=== PATIENT | female | born 1990 | race Hispanic/Latino ===

== ENCOUNTER 2019-10-22 11:11 | Emergency (ER) | payer SELFPAY ==
[~2019-10-22] VITALS: Ht 157.5 cm; Wt 70.3 kg
[2019-10-22 11:11] VITALS: BP 118/59
== END 2019-10-22 13:41 | disposition home or self-care (01) ==
LOC: M ED 11:11
DX: J06.9 Acute upper respiratory infection, unspecified (principal); Z87.891 Personal history of nicotine dependence
CPT/HCPCS: 87880; 99284; C9803; U0003

== ENCOUNTER 2020-05-12 16:39 | Emergency (ER) | payer MEDICAID, SELFPAY ==
[~2020-05-12] VITALS: Ht 157.5 cm; Wt 71.3 kg
[2020-05-12 16:39] VITALS: BP 118/56
--- NOTE | 2020-05-12 17:50 | REP ---
INDICATION: left abd pain. COMPARISON: None. TECHNIQUE: Transabdominal and transvaginal scanning are included. FINDINGS: Uterine dimensions are normal measured at 9.0 x 4.9 x 5.6 cm. Endometrial echo is 1.5 cm thick. No intrauterine gestation is seen. No focal uterine mass is seen. No free fluid Right ovary is normal measuring 2.8 x 2.2 x 2.6 cm. Left ovarian dimensions are 2.8 x 2.4 x 3.0 cm. There is a left ovarian anechoic cyst measuring 2.7 x 1.7 x 2.4 cm. This may be a follicle cyst. . IMPRESSION: No evidence of intrauterine gestation, adnexal mass, or cul-de-sac fluid. Nonspecific sonographic findings in the face of early 1st trimester . Clinical and possibly sonographic follow-up suggested. There is a small cystic area in the left ovary. <Electronically signed by Fritz Alvarez > 05/12/20 [id number]
[2020-05-12 20:12] LABS: BASO # 0.1 10^3/uL (0.0-0.2); BASO % 0.7 % (0.0-1.0); EOS # 0.2 10^3/uL (0.0-0.5); EOS % 2.7 % (0.0-3.0); HEMATOCRIT 38.4 % (36.0-47.0); HEMOGLOBIN 12.3 g/dl (12.0-15.5); LYMPH # 2.4 10^3/uL (1.5-5.0); LYMPH % 34.1 % (24.0-44.0); MEAN CORPUSCULAR HEMOGLOBIN 30.1 pg (27.0-33.0); MEAN CORPUSCULAR VOLUME 93.9 fl (80.0-96.0); MONO # 0.3 10^3/uL (0.0-0.8); MONO % 4.6 % (0.0-5.0); NEUTROPHILS # 4.1 10^3/uL (1.5-8.5); NEUTROPHILS % 57.6 % (36.0-66.0); PLATELET COUNT, AUTOMATED 255 10^3/uL (150-450); RED BLOOD COUNT 4.09 10^6/uL (4.00-5.40); WHITE BLOOD COUNT 7.1 10^3/uL (4.0-10.0)
[2020-05-12 20:38] LABS: BLOOD UREA NITROGEN 8 MG/DL (7-18); CALCIUM LEVEL 8.6 MG/DL (8.5-10.1); CARBON DIOXIDE LEVEL 23 MEQ/L (21-32); CHLORIDE LEVEL 109 MEQ/L (98-107); CREATININE FOR GFR 0.69 MG/DL (0.55-1.30); GLOMERULAR FILTRATION RATE > 60.0 (>60); GLUCOSE, FASTING 82 MG/DL (70-100); HCG, SERUM QUANTITATIVE 707 MIU/ML; POTASSIUM SERUM 3.7 MEQ/L (3.5-5.1); SODIUM LEVEL 138 MEQ/L (136-145)
== END 2020-05-12 22:00 | disposition home or self-care (01) ==
LOC: M ED 16:39
DX: O20.0 Threatened abortion (principal); O99.330 Smoking (tobacco) complicating pregnancy, unspecified trimester

== ENCOUNTER → 2020-05-14 | Outpatient (CLI) | payer SELFPAY | LOC: M LAB 16:29 | PROVIDERS: ATTEND Physician Assistant | DX: O20.0 Threatened abortion (principal); Z3A.00 Weeks of gestation of pregnancy not specified ==

== ENCOUNTER → 2020-05-22 | Outpatient (CLI) | payer SELFPAY | LOC: M LABSMTC 10:06 | PROVIDERS: ATTEND Pediatrics | DX: Z20.828 Contact with and (suspected) exposure to other viral communicable diseases (principal) ==

== ENCOUNTER → 2020-05-28 | Outpatient (CLI) | payer MEDICAID ==
--- NOTE | 2020-05-28 14:51 | REP ---
INDICATION: COUNSELING, UNSPECIFIED/ LABS 1ST. COMPARISON: 05/12/2020. TECHNIQUE: Real-time sonographic evaluation of gravid uterus performed. FINDINGS: There is a single living intrauterine gestation with estimated station later 6 weeks 5 days based on a crown-rump length of 8 mm. EDC is 01/16/2021. heart rate is 139 beats per minute. There is no subchorionic hemorrhage. There is a cyst in the left ovary which may represent a corpus luteum 3.6 x 2.3 x 3.8 cm. No torsion is seen in the left ovary with duplex Doppler evaluation. IMPRESSION: Viable intrauterine gestation as above. <Electronically signed by Margarito Hussein > 05/28/20 [id number]
== END ==
LOC: M LAB 10:54
PROVIDERS: ATTEND Obstetrics & Gynecology Obstetrics
DX: O34.81 Maternal care for other abnormalities of pelvic organs, first trimester (principal); N83.202 Unspecified ovarian cyst, left side; Z3A.00 Weeks of gestation of pregnancy not specified

== ENCOUNTER 2020-06-16 08:05 | Emergency (ER) | payer MEDICAID, OTHER ==
[~2020-06-16] VITALS: Ht 157.5 cm; Wt 76.0 kg
[2020-06-16] MEDS ORDERED: PRENTAB9 PO (08:15)
[2020-06-16 09:29] LABS: BASO # 0.1 10^3/uL (0.0-0.2); BASO % 0.7 % (0.0-1.0); EOS # 0.1 10^3/uL (0.0-0.5); EOS % 1.8 % (0.0-3.0); HEMOGLOBIN 12.6 g/dl (12.0-15.5); LYMPH # 2.1 10^3/uL (1.5-5.0); LYMPH % 28.8 % (24.0-44.0); MEAN CORPUSCULAR HEMOGLOBIN 30.1 pg (27.0-33.0); MEAN CORPUSCULAR HGB CONC 33.2 g/dl (32.0-36.5); MEAN CORPUSCULAR VOLUME 90.7 fl (80.0-96.0); MONO # 0.4 10^3/uL (0.0-0.8); MONO % 4.9 % (0.0-5.0); NEUTROPHILS # 4.7 10^3/uL (1.5-8.5); NEUTROPHILS % 63.5 % (36.0-66.0); PLATELET COUNT, AUTOMATED 272 10^3/uL (150-450); RED BLOOD COUNT 4.19 10^6/uL (4.00-5.40); WHITE BLOOD COUNT 7.4 10^3/uL (4.0-10.0)
[2020-06-16 10:27] LABS: BLOOD UREA NITROGEN 7 MG/DL (7-18); CARBON DIOXIDE LEVEL 24 MEQ/L (21-32); CHLORIDE LEVEL 108 MEQ/L (98-107); CREATININE FOR GFR 0.63 MG/DL (0.55-1.30); GLOMERULAR FILTRATION RATE > 60.0 (>60); GLUCOSE, FASTING 89 MG/DL (70-100); HCG, SERUM QUANTITATIVE 64894 MIU/ML; POTASSIUM SERUM 3.9 MEQ/L (3.5-5.1); SODIUM LEVEL 137 MEQ/L (136-145)
--- NOTE | 2020-06-16 10:34 | REP ---
INDICATION: 9 weeks , cramping. COMPARISON: Comparison study 05/28/2020.. TECHNIQUE: Transabdominal scanning. FINDINGS: Scanning through the urine filled bladder demonstrates a single living intrauterine gestation in a free-floating lie. heart rate is recorded at 176 beats per minute. [place]-rump length of the embryonic pole is 27 mm. This corresponds with a gestational age estimate of 9 weeks 3 days. There is a 3.3 cm septated cystic area in the maternal left ovary consistent with corpus luteum. IMPRESSION: Viable single intrauterine gestation at 9 weeks 3 days by today's crown-rump length. Expected gestational age estimate based on prior sonography is 9 weeks 5 days. LINDSEY by prior sonography January 14, 2021. No complication is seen. 3.3 cm cystic area is noted in the maternal left ovary. <Electronically signed by Fritz Alvarez > 06/16/20 [id number]
[2020-06-16] MEDS ORDERED: NS 1,000 ML IV ONE (10:45)
[2020-06-16] MEDS ORDERED: KEFL500C17 PO (12:39)
[2020-06-16 12:45] VITALS: BP 112/69
== END 2020-06-16 12:47 | disposition home or self-care (01) ==
LOC: M ED 08:05
DX: Z32.01 Encounter for pregnancy test, result positive (principal); O26.891 Other specified pregnancy related conditions, first trimester; O34.81 Maternal care for other abnormalities of pelvic organs, first trimester; O23.91 Unspecified genitourinary tract infection in pregnancy, first trimester; Z3A.09 9 weeks gestation of pregnancy; Z87.891 Personal history of nicotine dependence

== ENCOUNTER → 2020-06-22 | Outpatient (CLI) | payer OTHER ==
[~2020-06-22] MED LIST: KEFL500C17 PO; PRENTAB9 PO
[2020-06-22 08:13] LABS: APPEARANCE, URINE CLEAR (CLEAR); BACTERIA, URINE AUTO 1+ (NEGATIVE); BILIRUBIN, URINE AUTO NEGATIVE (NEGATIVE); BLOOD, URINE BLOOD NEGATIVE (NEGATIVE); COLOR, URINE STRAW (YELLOW); GLUCOSE, URINE (UA) AUTO NEGATIVE (NEGATIVE); KETONE, URINE AUTO NEGATIVE (NEGATIVE); LEUKOCYTE ESTERASE, URINE AUTO NEGATIVE (NEGATIVE); NITRITE, URINE AUTO NEGATIVE (NEGATIVE); PROTEIN, URINE AUTO NEGATIVE (NEGATIVE); RBC, URINE AUTO 1 /HPF (0-3); SPECIFIC GRAVITY URINE AUTO 1.005 (1.002-1.035); SQUAMOUS EPITHELIAL CELL UR AU 0 /HPF (0-6); UROBILINOGEN, URINE AUTO 0.2 mg/dL (0.0-2.0); WBC, URINE AUTO 0 /HPF (0-3)
[2020-06-22 09:03] LABS: BASO % 0.5 % (0.0-1.0); EOS # 0.2 10^3/uL (0.0-0.5); EOS % 2.3 % (0.0-3.0); HEMATOCRIT 37.2 % (36.0-47.0); HEMOGLOBIN 12.1 g/dl (12.0-15.5); LYMPH # 1.8 10^3/uL (1.5-5.0); LYMPH % 22.5 % (24.0-44.0); MEAN CORPUSCULAR HGB CONC 32.5 g/dl (32.0-36.5); MEAN CORPUSCULAR VOLUME 92.1 fl (80.0-96.0); MONO # 0.4 10^3/uL (0.0-0.8); MONO % 4.9 % (0.0-5.0); NEUTROPHILS # 5.5 10^3/uL (1.5-8.5); NEUTROPHILS % 69.5 % (36.0-66.0); PLATELET COUNT, AUTOMATED 259 10^3/uL (150-450); RED BLOOD COUNT 4.04 10^6/uL (4.00-5.40)
[2020-06-22 09:20] LABS: ALBUMIN 3.7 GM/DL (3.2-5.2); ALT/SGPT 25 U/L (12-78); BILIRUBIN,TOTAL 0.1 MG/DL (0.2-1.0); BLOOD UREA NITROGEN 10 MG/DL (7-18); CALCIUM LEVEL 8.4 MG/DL (8.5-10.1); CARBON DIOXIDE LEVEL 23 MEQ/L (21-32); CHLORIDE LEVEL 106 MEQ/L (98-107); CREATININE FOR GFR 0.59 MG/DL (0.55-1.30); FREE T3 3.8 PG/ML (2.2-4.0); FREE T4 1.21 NG/DL (0.76-1.46); GLOMERULAR FILTRATION RATE > 60.0 (>60); GLUCOSE, FASTING 84 MG/DL (70-100); POTASSIUM SERUM 3.9 MEQ/L (3.5-5.1); SODIUM LEVEL 138 MEQ/L (136-145); THYROXINE (T4) 13.6 UG/DL (4.5-12.0); TOTAL PROTEIN 6.7 GM/DL (6.4-8.2)
[2020-06-22 09:22] LABS: THYROID PEROXIDASE ANTIBODY < 28.0 U/ML (<60.0)
[2020-06-22 10:03] LABS: HIV 1&2 SCREEN CENTAUR NEGATIVE (NEGATIVE)
== END ==
LOC: M LAB 06:37
DX: Z34.81 Encounter for supervision of other normal pregnancy, first trimester (principal); Z3A.10 10 weeks gestation of pregnancy

== ENCOUNTER → 2020-07-08 | Outpatient (REF) | payer OTHER | LOC: M LAB REF 15:48 | PROVIDERS: ATTEND Obstetrics & Gynecology | DX: Z34.81 Encounter for supervision of other normal pregnancy, first trimester (principal) ==

== ENCOUNTER → 2020-07-15 | Outpatient (CLI) | payer OTHER | LOC: M LAB 19:33 | PROVIDERS: ATTEND Obstetrics & Gynecology Obstetrics | DX: Z34.81 Encounter for supervision of other normal pregnancy, first trimester (principal) ==

== ENCOUNTER → 2020-07-15 | Outpatient (CLI) | payer OTHER | LOC: M LAB 19:27 | PROVIDERS: ATTEND Obstetrics & Gynecology | DX: Z34.81 Encounter for supervision of other normal pregnancy, first trimester (principal); Z3A.00 Weeks of gestation of pregnancy not specified ==

== ENCOUNTER → 2020-07-29 | Outpatient (REF) | LOC: M LABSMTC 12:16 | PROVIDERS: ATTEND Family Medicine | DX: Z20.822 Contact with and (suspected) exposure to COVID-19 (principal) ==

== ENCOUNTER 2020-09-01 00:52 | Outpatient (CLI) | payer OTHER ==
[~2020-09-01] VITALS: Ht 157.5 cm; Wt 78.3 kg
[2020-09-01] MEDS ORDERED: LR 1,000 ML IV ONE (01:30)
[2020-09-01] MEDS ORDERED: LR 1,000 ML IV SCH (01:30)
[2020-09-01 01:34] VITALS: BP 115/60
[2020-09-01] MEDS ORDERED: PROMETHAZINE INJ 25 MG/ML VIAL (J2550) IV ONE (01:35)
[2020-09-01 04:33] VITALS: BP 93/47
--- NOTE | 2020-09-01 04:50 | IPNPDOC ---
Text Note Date of Service The patient was seen on 09/01/20. NOTE L&D Triage Note: S: 29yo at 20w5d presents with c/o n/v that started yesterday morning 0900. Reports sick contact at work at [employer] [facility]. Denies f/c, vaginal bleeding. Reports movement O: vss, AF +doptones Gen: NAD Abd: gravid, nttp -Patient provided with 2L LR with 12.5mg Phenergan. A/P: 29yo at 20w5d with N/V, improved - Will challenge with PO hydration. When able to tolerate PO, plan to discharge home -Midtrimester precautions -f/u at next OB appt Carrie Casper MD VS,Toan, I+O VSToan, I+O Vital Signs Date Time Temp Pulse Resp B/P (MAP) Pulse Ox O2 Delivery O2 Flow Rate FiO2 09/01/20 01:34 98.1 80 16 115/60 (78) CARRIE CASPER MD. Sep 01, 2020 04:50
[2020-09-01] MEDS ORDERED: ONDA4TAB6 PO (04:51)
[2020-09-01 09:37] VITALS: BP 106/59
== END 2020-09-01 10:05 | disposition home or self-care (01) ==
LOC: M LDO 00:52
PROVIDERS: ATTEND Obstetrics & Gynecology
DX: O21.8 Other vomiting complicating pregnancy (principal); Z3A.20 20 weeks gestation of pregnancy

== ENCOUNTER → 2020-09-23 | Outpatient (CLI) | payer OTHER ==
[~2020-09-23] MED LIST changes: +ONDA4TAB6 PO
--- NOTE | 2020-09-24 07:35 | REP ---
INDICATION: ANATOMY COMPARISON: 06/16/2020 TECHNIQUE: Transabdominal obstetrical ultrasound with color Doppler evaluation. FINDINGS: Examination demonstrates a single live intrauterine in footling breech presentation. motion is identified by technologist. Placenta is noted anterior and grade 0 without evidence for placenta previa or abruption. Amniotic fluid volume is normal. Cervix measures 5.0 cm in length and appears closed.. Gestational age by LMP and 1st U/S 23 weeks 6 days with LINDSEY 01/14/2021. Gestational age by current measurements 24 weeks 3 days with LINDSEY 01/10/2021. FHR equals 160 beats per minute. BPD: 5.9 cm at 24 weeks 2 days HC: 22.2 cm at 24 weeks 2 days AC: 18.8 cm at 23 weeks 4 days FL: 4.2 cm at 23 weeks 4 days HL: 4.4 cm at 26 weeks 2 days HC/AC: 1.18 Estimated weight 617 grams (31stpercentile). Anatomical assessment demonstrates normal structures including cranium, choroid plexus, cavum, cerebellum/posterior fossa, facial features, lungs, four-chamber heart/ventricular outflow tracts, diaphragm, stomach, cord insertion/three-vessel cord, kidneys/bladder, spine, and extremities. IMPRESSION: Single live intrauterine in breech presentation. Anatomical assessment is complete and normal. Estimated weight normal. <Electronically signed by Delfino Gerardo > 09/24/20 [id number]
== END ==
LOC: M RAD 13:48
PROVIDERS: ATTEND Obstetrics & Gynecology Obstetrics
DX: O32.8XX0 Maternal care for other malpresentation of fetus, not applicable or unspecified (principal); Z36.89 Encounter for other specified antenatal screening; Z3A.23 23 weeks gestation of pregnancy

== ENCOUNTER 2020-10-02 12:28 | Outpatient (CLI) | payer OTHER ==
[~2020-10-02] VITALS: Ht 157.5 cm; Wt 85.6 kg
[2020-10-02 13:03] VITALS: BP 112/58
[2020-10-02] MEDS ORDERED: CYCLOBENZAPRINE 10MG TABLET PO ONE (13:30)
--- NOTE | 2020-10-02 13:34 | IPNPDOC ---
Obstetrical Progress Note Date of Service Oct 02, 2020 Subjective 29 yo at 25 1/7 weeks presents with 1 day of lower pelvic cramping, and low back pain. Rare upper abdominal tightening. No bleeding. Good movement. pt of Dr. Chakraborty at [facility]. Assessment Variability: Moderate Accelerations: Positive Decelerations: None Heart Rate Tracing: Category I Tocometer Contractions: No Sterile Vaginal Examination Dilation: None Cervical Consistency: Firm Cervical Position: Posterior Assessment and Plan Status: Reassuring Additional Comments Bedside ultrasound: Breech, normal ROBERT, nl anterior placenta, good movement 29 yo at 25 1/7 weeks with back pain, no labor pelvic rest oral fluids try Flexeril for back pain fu Dr. Chakraborty Recommend taking night off from work today BERENICE TOPETE MD Oct 02, 2020 13:34
[2020-10-02] MEDS ORDERED: ACET325C5 PO (13:42)
== END 2020-10-02 15:00 | disposition home or self-care (01) ==
LOC: M LDO 12:28
PROVIDERS: ATTEND Specialist
DX: O26.892 Other specified pregnancy related conditions, second trimester (principal); M54.5 Low back pain; Z3A.25 25 weeks gestation of pregnancy

== ENCOUNTER 2020-10-03 19:32 | Outpatient (CLI) | payer OTHER ==
[~2020-10-03] VITALS: Ht 157.5 cm; Wt 83.8 kg
[~2020-10-03 19:32] MED LIST changes: +ACET325C5 PO
[2020-10-03 19:51] VITALS: BP 110/68
[2020-10-03 21:47] VITALS: BP 103/57
--- NOTE | 2020-10-03 21:47 | IPNPDOC ---
Text Note Date of Service The patient was seen on 10/03/20. NOTE S: 24 yo at 25 2/7 weeks presents with pain near her rib cage in front, and some lower back pain. Good movement. Pt left work to come to triage. She is a patient of Dr. Chakraborty. S: Gen: NAD Abd: nt, gravid, soft SVE: cx L/C/P firm no CVA tenderness FHT: Cat. I toco: none ext:NT urinalysis: normal A/P 24 yo at 25 2/7 weeks with musculoskeletal pain discharge home rest tonight Tylenol for discomfort fu Dr. Chakraborty VS,Fishbone, I+O VS, Fishbone, I+O Vital Signs Date Time Temp Pulse Resp B/P (MAP) Pulse Ox O2 Delivery O2 Flow Rate FiO2 10/03/20 19:51 98.3 81 18 110/68 (82) 98 Room Air BERENICE TOPETE MD Oct 03, 2020 21:47
== END 2020-10-03 22:07 | disposition home or self-care (01) ==
LOC: M LDO 19:32
PROVIDERS: ATTEND Specialist
DX: O26.892 Other specified pregnancy related conditions, second trimester (principal); M79.18 Myalgia, other site; Z3A.25 25 weeks gestation of pregnancy

== ENCOUNTER → 2020-10-26 | Outpatient (CLI) | payer OTHER ==
[2020-10-26 12:33] LABS: BASO % 0.5 % (0.0-1.0); EOS # 0.1 10^3/uL (0.0-0.5); EOS % 0.6 % (0.0-3.0); HEMATOCRIT 35.2 % (36.0-47.0); HEMOGLOBIN 11.5 g/dl (12.0-15.5); LYMPH # 1.3 10^3/uL (1.5-5.0); LYMPH % 15.4 % (24.0-44.0); MEAN CORPUSCULAR HEMOGLOBIN 31.1 pg (27.0-33.0); MEAN CORPUSCULAR HGB CONC 32.7 g/dl (32.0-36.5); MEAN CORPUSCULAR VOLUME 95.1 fl (80.0-96.0); MONO # 0.3 10^3/uL (0.0-0.8); MONO % 3.9 % (2.0-8.0); NEUTROPHILS # 6.7 10^3/uL (1.5-8.5); NEUTROPHILS % 78.9 % (36.0-66.0); PLATELET COUNT, AUTOMATED 227 10^3/uL (150-450); WHITE BLOOD COUNT 8.4 10^3/uL (4.0-10.0)
== END ==
LOC: M LAB 10:39
PROVIDERS: ATTEND Obstetrics & Gynecology
DX: Z34.82 Encounter for supervision of other normal pregnancy, second trimester (principal)

== ENCOUNTER 2020-11-01 01:56 | Emergency (ER) | payer OTHER ==
[~2020-11-01] VITALS: Ht 157.5 cm; Wt 87.8 kg
[2020-11-01] MEDS ORDERED: DIPH25CA32 PO (02:01)
[2020-11-01 03:57] LABS: RSV AMPLIFICATION NEGATIVE (NEGATIVE)
[2020-11-01] MEDS ORDERED: LR 1,000 ML IV ONE (07:15)
[2020-11-01 07:42] LABS: BASO % 0.4 % (0.0-1.0); EOS # 0.3 10^3/uL (0.0-0.5); EOS % 3.3 % (0.0-3.0); HEMATOCRIT 34.5 % (36.0-47.0); HEMOGLOBIN 11.3 g/dl (12.0-15.5); LYMPH # 1.7 10^3/uL (1.5-5.0); LYMPH % 16.7 % (24.0-44.0); MEAN CORPUSCULAR HEMOGLOBIN 30.8 pg (27.0-33.0); MEAN CORPUSCULAR HGB CONC 32.8 g/dl (32.0-36.5); MONO # 0.6 10^3/uL (0.0-0.8); NEUTROPHILS # 7.5 10^3/uL (1.5-8.5); NEUTROPHILS % 72.9 % (36.0-66.0); PLATELET COUNT, AUTOMATED 220 10^3/uL (150-450); RED BLOOD COUNT 3.67 10^6/uL (4.00-5.40); WHITE BLOOD COUNT 10.3 10^3/uL (4.0-10.0)
[2020-11-01 08:11] LABS: ALBUMIN 2.5 GM/DL (3.2-5.2); ALT/SGPT 21 U/L (12-78); BILIRUBIN,DIRECT < 0.1 MG/DL (0.0-0.2); BILIRUBIN,TOTAL 0.1 MG/DL (0.2-1.0); BLOOD UREA NITROGEN 8 MG/DL (7-18); CALCIUM LEVEL 7.9 MG/DL (8.5-10.1); CARBON DIOXIDE LEVEL 23 MEQ/L (21-32); CHLORIDE LEVEL 107 MEQ/L (98-107); CK-MB VALUE MASS 4.3 NG/ML (<3.6); CPK CREATINE PHOSPHOKINASE 178 U/L (26-192); GLOMERULAR FILTRATION RATE > 60.0 (>60); GLUCOSE, FASTING 94 MG/DL (70-100); LIPASE 103 U/L (73-393); MB/CK RELATIVE INDEX 2.42 (< OR =4); POTASSIUM SERUM 3.9 MEQ/L (3.5-5.1); SODIUM LEVEL 139 MEQ/L (136-145); TOTAL PROTEIN 5.9 GM/DL (6.4-8.2); TROPONIN I < 0.02 NG/ML (< 0.10)
--- NOTE | 2020-11-01 08:43 | ED PDOC ---
Post-Departure Follow-Up Patient seen by Dr. Wei but no T-Sheet available. Per patient, seasonal allerg ies with copious post nasal drainage and sore throat for 2 weeks. Currently in her 3rd trimester and had been advised by her OBGYN to use Benadryl for her sympmtoms. It has been causing her to be fatigued and occasionally dizzy. She denies any fevers/chills/rigors, GI/ symptoms. ON exam, her vitals are within normal limits, she appears in no distress. She has postnasal drainage noted on HEENT, her lungs are clear, heart sounds normal, her abdomen gravid, FH 29cm, FHR 152 in RLQ. She is not orthostatic. All labs consistent with without significant abnormalities. She is Inf/RSV/COV negative. She has vbeen discharged with a diagnosis of seasonal allergies/allergic rhinosinusitis and adverse reaction to medication. She has been advised to DC her Benadryl and will start on levocetirizine 5mg po qhs and follow up with Dr. Orozco for her OBGYN care Uvaldo Herron M.D. November 01, 2020 08:42
[2020-11-01] MEDS ORDERED: LEVOTAB10 PO (08:50)
[2020-11-01 09:06] VITALS: BP 128/58
--- NOTE | 2020-11-01 20:05 | ECGEPIP ---
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
== END 2020-11-01 09:09 | disposition home or self-care (01) ==
LOC: M ED 01:56
DX: O99.513 Diseases of the respiratory system complicating pregnancy, third trimester (principal); J30.2 Other seasonal allergic rhinitis; O9A.213 Injury, poisoning and certain other consequences of external causes complicating pregnancy, third trimester; T45.0X5A Adverse effect of antiallergic and antiemetic drugs, initial encounter; Z79.899 Other long term (current) drug therapy; Z3A.00 Weeks of gestation of pregnancy not specified

== ENCOUNTER → 2020-11-05 | Outpatient (CLI) | payer OTHER ==
[~2020-11-05] MED LIST changes: +DIPH25CA32 PO; +LEVOTAB10 PO
== END ==
LOC: M LAB 09:00
PROVIDERS: ATTEND Obstetrics & Gynecology
DX: Z34.82 Encounter for supervision of other normal pregnancy, second trimester (principal); Z36.89 Encounter for other specified antenatal screening

== ENCOUNTER 2020-11-16 18:23 | Outpatient (CLI) | payer OTHER ==
[~2020-11-16] VITALS: Ht 157.5 cm; Wt 91.1 kg
[2020-11-16 18:44] VITALS: BP 143/62
[2020-11-16] MEDS ORDERED: ALKATAB17 PO (18:48)
[2020-11-16 19:42] LABS: HEMATOCRIT 31.7 % (36.0-47.0); HEMOGLOBIN 10.3 g/dl (12.0-15.5); MEAN CORPUSCULAR HEMOGLOBIN 30.6 pg (27.0-33.0); MEAN CORPUSCULAR HGB CONC 32.5 g/dl (32.0-36.5); MEAN CORPUSCULAR VOLUME 94.1 fl (80.0-96.0); PLATELET COUNT, AUTOMATED 236 10^3/uL (150-450); RED BLOOD COUNT 3.37 10^6/uL (4.00-5.40); WHITE BLOOD COUNT 11.2 10^3/uL (4.0-10.0)
[2020-11-16 20:00] LABS: CREATININE,RANDOM URINE 20.1 MG/DL; TOTAL PROTEIN,RANDOM URINE < 5.0 MG/DL (0.0-12.0)
[2020-11-16 20:02] LABS: ALBUMIN 2.4 GM/DL (3.2-5.2); ALT/SGPT 23 U/L (12-78); BILIRUBIN,TOTAL 0.1 MG/DL (0.2-1.0); BLOOD UREA NITROGEN 8 MG/DL (7-18); CALCIUM LEVEL 8.4 MG/DL (8.5-10.1); CARBON DIOXIDE LEVEL 24 MEQ/L (21-32); CHLORIDE LEVEL 109 MEQ/L (98-107); CREATININE FOR GFR 0.42 MG/DL (0.55-1.30); GLOMERULAR FILTRATION RATE > 60.0 (>60); GLUCOSE, FASTING 86 MG/DL (70-100); LDH LACTATE DEHYDROGENASE 154 U/L (84-246); POTASSIUM SERUM 3.9 MEQ/L (3.5-5.1); SODIUM LEVEL 139 MEQ/L (136-145); TOTAL PROTEIN 5.8 GM/DL (6.4-8.2); URIC ACID 3.9 MG/DL (2.6-6.0)
[2020-11-16] MEDS ORDERED: ACETAMINOPHEN 500 MG TAB PO ONE (20:20)
--- NOTE | 2020-11-16 21:40 | REPVR ---
PROCEDURE INFORMATION: Exam: US Duplex Right Lower Extremity Veins, Limited Exam date and time: 11/16/2020 9:10 PM Age: 30 years old Clinical indication: Pain; Leg, lower; Right; Additional info: Rle pain, +asya's on right lower ext TECHNIQUE: Imaging protocol: Real-time Duplex ultrasound of the Right Lower Extremity with 2-D collado scale, color Doppler flow and spectral waveform analysis with image documentation. Limited exam was focused on the right lower extremity veins. COMPARISON: No relevant prior studies available. FINDINGS: Right deep veins: Unremarkable. The common femoral, femoral, proximal profunda femoral and popliteal veins are patent without thrombus. Normal Doppler waveforms. Normal compressibility and/or augmentation response. Right superficial veins: Unremarkable. Saphenofemoral junction is patent without thrombus. Soft tissues: Unremarkable. IMPRESSION: No evidence of deep vein thrombosis. Electronically signed by: Ruben Cohen On 11/16/2020 21:40:33 PM
--- NOTE | 2020-11-16 22:55 | IPNPDOC ---
Obstetrical Progress Note Date of Service Nov 16, 2020 Subjective 30-year-old G2, P1 001 at 31+4 weeks gestation. Presented with complaint of right lower leg swelling. . She has a mild headache as well. . She denies any visual changes, right upper quadrant pain, shortness of breath or chest pain. She reports regular movement. She denies any vaginal bleeding, loss of fluid or uterine contractions. She receives her care at [facility] in [place], [place]. record was obtained. PMH/SH reviewed. 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 Mod isaiah [place]: no e/o ctx pattern RLE/US,Doppler: no e/o DVT Labs: see below Vital Signs Date Time Temp Pulse Resp B/P (MAP) Pulse Ox O2 Delivery O2 Flow Rate FiO2 11/16/20 18:44 97.3 82 18 143/62 (89) Laboratory Tests 11/16/20 19:25: Urine Random Creatinine 20.1, Urine Random Total Protein < 5.0 11/16/20 19:26: White Blood Count 11.2H, Red Blood Count 3.37L, Hemoglobin 10.3L, Hematocrit 31.7L, Mean Corpuscular Volume 94.1, Mean Corpuscular Hemoglobin 30.6, Mean Corpuscular Hemoglobin Concent 32.5, Red Cell Distribution Width 13.2, Platelet Count 236, Nucleated Red Blood Cells % (auto) 0.0, Sodium Level 139, Potassium Level 3.9, Chloride Level 109H, Carbon Dioxide Level 24, Anion Gap 6L, Blood Urea Nitrogen 8, Creatinine 0.42L, Glomerular Filtration Rate > 60.0, Fasting Glucose 86, Uric Acid 3.9, Calcium Level 8.4L, Total Bilirubin 0.1L, Aspartate Amino Transf (AST/SGOT) 10, Alanine Aminotransferase (ALT/SGPT) 23, Alkaline Phosphatase 77, Lactate Dehydrogenase 154, Total Protein 5.8L, Albumin 2.4L, Albumin/Globulin Ratio 0.7L A/P: 30yo at 31+4 weeks. no e/o pre-e; does not yet meet criteria for GHTN. No e/o DVT. Reassuring maternal and status -Routine third TM precautions reviewed -Follow up in office as scheduled. Thi Mcclendon DO Objective Vital Signs Date Time Temp Pulse Resp B/P (MAP) Pulse Ox O2 Delivery O2 Flow Rate FiO2 11/16/20 18:44 97.3 82 18 143/62 (89) STEFFEN MCCLENDON DO Nov 16, 2020 22:55
== END 2020-11-17 03:20 | disposition home or self-care (01) ==
LOC: M LDO 18:23
PROVIDERS: ATTEND Obstetrics & Gynecology
DX: O26.893 Other specified pregnancy related conditions, third trimester (principal); R03.0 Elevated blood-pressure reading, without diagnosis of hypertension; R22.41 Localized swelling, mass and lump, right lower limb; Z3A.31 31 weeks gestation of pregnancy

== ENCOUNTER 2020-12-01 02:16 | Outpatient (CLI) | payer OTHER ==
[~2020-12-01 02:16] MED LIST changes: +ALKATAB17 PO
--- NOTE | 2020-12-01 03:58 | IPNPDOC ---
Text Note Date of Service The patient was seen on 12/01/20. NOTE Triage Note Luna is a 30yo with SIUP at 33+wk presenting for LOF. 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 She notes today that she has been leaking clear fluid occasionally. It has been occurring intermittently. She states she was at work and she soaked through her panty liner onto her pants. No odor or itching. She feels good movement. No vaginal bleeding. No regular/painful ctx. Her first baby was born at term vaginally. complicated by A1GDM. Vitals wnl, afebrile Gen: WDWN, resting comfortably in bed Abdomen: soft, gravid, NTTP Extremities: no edema of BLE SSE: no pooling, negative valsalva, swab obtained SCE: closed/thick/high TAUS: SIUP in cephalic presentation, anterior placenta, ROBERT 12cm, +FCA, +FM Cat I FHRT with bl 140, +accels, -decels, mod isaiah [place]: there was a run of ctx that dissipated Labs: Negative nitrazine and negative ferning Assessment: Luna is a 30yo with SIUP at 33+wk with NO e/o PPROM based on neg nitrazine/fern/valsalva/pool. ROBERT 12cm. Reassuring status. NO e/o PTL- SCE cl/th/high. Patient given 1L LR IVF for run of ctx that dissipated. Plan: -Safe for discharge home -Keep next routine OB visit on 07 December -Provided reassurance and discussed return precautions MD Eamon Eckert Katrina D MD Dec 01, 2020 03:58
== END 2020-12-01 04:30 | disposition home or self-care (01) ==
LOC: M LDO 02:16
PROVIDERS: ATTEND Obstetrics & Gynecology
DX: O47.03 False labor before 37 completed weeks of gestation, third trimester (principal); Z3A.33 33 weeks gestation of pregnancy; O24.410 Gestational diabetes mellitus in pregnancy, diet controlled; Z79.899 Other long term (current) drug therapy

== ENCOUNTER 2021-01-07 05:24 | Outpatient (CLI) | payer OTHER ==
[~2021-01-07] VITALS: Ht 157.5 cm; Wt 98.1 kg
[2021-01-07 05:54] VITALS: BP 113/70
[2021-01-07] MEDS ORDERED: AMBI5TAB PO (06:18)
--- NOTE | 2021-01-07 07:39 | IPNPDOC ---
Text Note Date of Service The patient was seen on 01/07/21. NOTE Labor and Delivery Triage Note: S: 30yo at 33w5d presents with c/o contractions and pelvic pressure. Denies vaginal bleeding or LOF. Reports active movement. O: vss, AF no ctx Cat 1 tracing, with ctx. Gen: well appearing, NAD Abd: gravid, soft, nttp cx: long/ closed A/P: 30yo with contractions reassuring status -Offered patient reexamination in 2 hours, therapeutic rest. She declines and desires to be discharged home -Discharge with labor precautions and kick count instructions Carrie Casper MD VS,Toan, I+O VS, Toan I+O Vital Signs Date Time Temp Pulse Resp B/P (MAP) Pulse Ox O2 Delivery O2 Flow Rate FiO2 01/07/21 05:54 97.1 72 113/70 (84) 01/07/21 05:50 20 97 Room Air CARRIE CASPER MD. Jan 07, 2021 07:39
== END 2021-01-07 07:30 | disposition home or self-care (01) ==
LOC: M LDO 05:24
PROVIDERS: ATTEND Obstetrics & Gynecology
DX: O26.893 Other specified pregnancy related conditions, third trimester (principal); Z3A.33 33 weeks gestation of pregnancy; R10.2 Pelvic and perineal pain; O47.03 False labor before 37 completed weeks of gestation, third trimester; Z79.899 Other long term (current) drug therapy

== ENCOUNTER → 2021-03-17 | Outpatient (CLI) | payer OTHER ==
[~2021-03-17] MED LIST changes: +AMBI5TAB PO
--- NOTE | 2021-03-17 15:42 | REP ---
INDICATION: RADICULOPATHY. COMPARISON: None. TECHNIQUE: Five views FINDINGS: Five views of the lumbosacral spine show no acute fracture, dislocation or subluxation. The intervertebral disc spaces are symmetric and well maintained. There is no spondylolysis or spondylolisthesis. The pedicles are intact bilaterally and there is no destructive osseous lesion. IMPRESSION: Unremarkable lumbosacral spine series. <Electronically signed by Felipe Boateng > 03/17/21 [id number]
== END ==
LOC: M WUC 15:03
PROVIDERS: ATTEND Pediatrics
DX: M54.16 Radiculopathy, lumbar region (principal)

== ENCOUNTER 2021-06-19 08:39 | Emergency (ER) | payer OTHER ==
[~2021-06-19] VITALS: Ht 157.5 cm; Wt 89.0 kg
[2021-06-19] MEDS ORDERED: ACETAMINOPHEN 500 MG TAB PO ONE (11:25)
[2021-06-19] MEDS ORDERED: ACET-897 PO (11:30)
[2021-06-19 11:32] VITALS: BP 129/65
== END 2021-06-19 11:42 | disposition home or self-care (01) ==
LOC: M ED 08:39
DX: U07.1 COVID-19 (principal); Z20.822 Contact with and (suspected) exposure to COVID-19; E78.00 Pure hypercholesterolemia, unspecified; Z86.32 Personal history of gestational diabetes; Z87.891 Personal history of nicotine dependence; Z79.82 Long term (current) use of aspirin

== ENCOUNTER 2021-08-23 17:39 | Emergency (ER) | payer OTHER ==
[~2021-08-23] VITALS: Ht 157.5 cm; Wt 92.3 kg
[~2021-08-23 17:39] MED LIST changes: +ACET-897 PO
[2021-08-23] MEDS ORDERED: IBUP80TA (17:53)
[2021-08-23 20:13] LABS: BASO # 0.1 10^3/uL (0.0-0.2); BASO % 0.6 % (0.0-1.0); EOS # 0.2 10^3/uL (0.0-0.5); EOS % 2.2 % (0.0-3.0); HEMATOCRIT 40.6 % (36.0-47.0); HEMOGLOBIN 13.4 g/dl (12.0-15.5); LYMPH % 25.3 % (24.0-44.0); MEAN CORPUSCULAR HEMOGLOBIN 30.5 pg (27.0-33.0); MEAN CORPUSCULAR VOLUME 92.3 fl (80.0-96.0); MONO # 0.5 10^3/uL (0.0-0.8); MONO % 6.5 % (2.0-8.0); NEUTROPHILS # 5.2 10^3/uL (1.5-8.5); NEUTROPHILS % 65.2 % (36.0-66.0); PLATELET COUNT, AUTOMATED 294 10^3/uL (150-450)
[2021-08-23 20:33] LABS: ALBUMIN 3.6 GM/DL (3.2-5.2); ALT/SGPT 39 U/L (12-78); BILIRUBIN,DIRECT < 0.1 MG/DL (0.0-0.2); BILIRUBIN,TOTAL 0.2 MG/DL (0.2-1.0); BLOOD UREA NITROGEN 13 MG/DL (7-18); CALCIUM LEVEL 9.1 MG/DL (8.5-10.1); CARBON DIOXIDE LEVEL 27 MEQ/L (21-32); CHLORIDE LEVEL 108 MEQ/L (98-107); CREATININE FOR GFR 0.67 MG/DL (0.55-1.30); GLOMERULAR FILTRATION RATE > 60.0 (>60); GLUCOSE, FASTING 85 MG/DL (70-100); POTASSIUM SERUM 4.3 MEQ/L (3.5-5.1); SODIUM LEVEL 140 MEQ/L (136-145)
[2021-08-23 20:44] LABS: HCG, SERUM QUALITATIVE NEGATIVE (NEGATIVE)
[2021-08-23 21:20] VITALS: BP 109/61
== END 2021-08-23 21:48 | disposition home or self-care (01) ==
LOC: M ED 17:39
DX: H43.12 Vitreous hemorrhage, left eye (principal)

== ENCOUNTER 2021-09-06 21:13 | Emergency (ER) | payer OTHER ==
[~2021-09-06] VITALS: Ht 157.5 cm; Wt 91.4 kg
[~2021-09-06 21:13] MED LIST changes: +IBUP80TA
[2021-09-06 21:14] VITALS: BP 128/58
[2021-09-06] MEDS ORDERED: PREDOPD (21:20)
[2021-09-06 23:11] LABS: RSV AMPLIFICATION NEGATIVE (NEGATIVE)
== END 2021-09-07 00:06 | disposition home or self-care (01) ==
LOC: M ED 21:13
DX: J06.9 Acute upper respiratory infection, unspecified (principal)

== ENCOUNTER 2021-09-30 15:03 | Emergency (ER) | payer OTHER ==
[~2021-09-30] VITALS: Ht 157.5 cm; Wt 95.0 kg
[~2021-09-30 15:03] MED LIST changes: +PREDOPD
[2021-09-30] MEDS ORDERED: ASPIRIN 81 MG CHEW TABLET PO ONE (16:40)
[2021-09-30 18:09] LABS: BASO # 0.1 10^3/uL (0.0-0.2); BASO % 0.7 % (0.0-1.0); EOS # 0.1 10^3/uL (0.0-0.5); EOS % 1.7 % (0.0-3.0); HEMATOCRIT 39.7 % (36.0-47.0); HEMOGLOBIN 13.3 g/dl (12.0-15.5); LYMPH % 27.6 % (24.0-44.0); MEAN CORPUSCULAR HEMOGLOBIN 30.7 pg (27.0-33.0); MEAN CORPUSCULAR HGB CONC 33.5 g/dl (32.0-36.5); MEAN CORPUSCULAR VOLUME 91.7 fl (80.0-96.0); MONO # 0.4 10^3/uL (0.0-0.8); MONO % 5.6 % (2.0-8.0); NEUTROPHILS # 4.6 10^3/uL (1.5-8.5); NEUTROPHILS % 64.1 % (36.0-66.0); PLATELET COUNT, AUTOMATED 313 10^3/uL (150-450); RED BLOOD COUNT 4.33 10^6/uL (4.00-5.40); WHITE BLOOD COUNT 7.1 10^3/uL (4.0-10.0)
[2021-09-30] MEDS ORDERED: NS 1,000 ML IV ONE (18:10)
[2021-09-30] MEDS ORDERED: KETOROLAC 30 MG/ML 1ML VIAL IV ONE (18:10)
[2021-09-30] MEDS ORDERED: ACETAMINOPHEN 500 MG TAB PO ONE (18:10)
[2021-09-30] MEDS ORDERED: METOCLOPRAMIDE INJ 10MG/2ML VIAL (J2765 PER 1) IV ONE (18:10)
[2021-09-30] MEDS ORDERED: diphenhydrAMINE 50MG/ML VIAL (J1200) IV ONE (18:10)
[2021-09-30 18:22] LABS: INR 0.88; PROTHROMBIN TIME 12.3 SECONDS (12.7-14.5)
[2021-09-30 18:23] LABS: PARTIAL THROMBOPLASTIN TIME 29.5 SECONDS (25.9-37.0)
[2021-09-30 18:29] LABS: HCG, SERUM QUALITATIVE NEGATIVE (NEGATIVE)
[2021-09-30 18:30] LABS: BLOOD UREA NITROGEN 11 MG/DL (7-18); CALCIUM LEVEL 9.2 MG/DL (8.5-10.1); CARBON DIOXIDE LEVEL 26 MEQ/L (21-32); CHLORIDE LEVEL 106 MEQ/L (98-107); CREATININE FOR GFR 0.61 MG/DL (0.55-1.30); GLOMERULAR FILTRATION RATE > 60.0 (>60); GLUCOSE, FASTING 84 MG/DL (70-100); POTASSIUM SERUM 4.7 MEQ/L (3.5-5.1); SODIUM LEVEL 136 MEQ/L (136-145)
[2021-09-30 18:32] LABS: CK-MB VALUE MASS 1.1 NG/ML (<3.6); MB/CK RELATIVE INDEX 0.81 (< OR =4)
[2021-09-30 19:27] LABS: RSV AMPLIFICATION NEGATIVE (NEGATIVE)
[2021-09-30 21:00] VITALS: BP 108/56
== END 2021-09-30 21:57 | disposition home or self-care (01) ==
LOC: M ED 15:03
DX: G43.809 Other migraine, not intractable, without status migrainosus (principal); H53.8 Other visual disturbances; Z87.891 Personal history of nicotine dependence; Z79.899 Other long term (current) drug therapy
CPT/HCPCS: 70450; 70544; 70551; 80048; 82550; 82553; 84703; 85025; 85610; 85730; 87631; 93005; 93041; 94760; 99285; J1200; J1885; J2765

== ENCOUNTER 2021-10-18 13:33 | Emergency (ER) | payer OTHER ==
[~2021-10-18] VITALS: Ht 157.5 cm; Wt 91.0 kg
[2021-10-18 13:45] VITALS: BP 126/28
== END 2021-10-18 14:56 | disposition home or self-care (01) ==
LOC: M ED 13:33
DX: S61.302A Unspecified open wound of right middle finger with damage to nail, initial encounter (principal); X58.XXXA Exposure to other specified factors, initial encounter; Y92.099 Unspecified place in other non-institutional residence as the place of occurrence of the external cause; Y93.89 Activity, other specified; Y99.9 Unspecified external cause status

== ENCOUNTER 2021-11-02 08:08 | Emergency (ER) | payer OTHER ==
[~2021-11-02] VITALS: Ht 157.5 cm; Wt 96.9 kg
[2021-11-02] MEDS ORDERED: ONDANSETRON 4MG ORAL DISINTEGRATING TAB PO ONE (10:35)
[2021-11-02] MEDS ORDERED: LORATADINE 10 MG TAB PO ONE (10:35)
[2021-11-02 11:45] VITALS: BP 13/87
[2021-11-02] MEDS ORDERED: LORA-674 PO (11:46)
[2021-11-02] MEDS ORDERED: FLON1SPR NARES (11:46)
[2021-11-02] MEDS ORDERED: ONDA4TAB6 PO (11:46)
[2021-11-02] MEDS ORDERED: FLUTICASONE PROP 0.05% NASAL SPRAY 16 GM (FLONASE) NARES SCH (21:00)
== END 2021-11-02 12:18 | disposition home or self-care (01) ==
LOC: M ED 08:08
DX: J06.9 Acute upper respiratory infection, unspecified (principal); Z79.899 Other long term (current) drug therapy

== ENCOUNTER → 2022-01-16 | Outpatient (REF) ==
[~2022-01-16] MED LIST changes: +FLON1SPR NARES; +LORA-674 PO
== END ==
LOC: M LABSMTC 09:22
PROVIDERS: ATTEND Family Medicine
DX: Z11.52 Encounter for screening for COVID-19 (principal)

== ENCOUNTER → 2022-02-26 | Outpatient (CLI) | payer OTHER | LOC: M RAD 14:50 | PROVIDERS: ATTEND Physician Assistant Medical | DX: M79.671 Pain in right foot (principal) ==

== ENCOUNTER 2022-03-18 23:34 | Emergency (ER) | payer OTHER ==
[~2022-03-18] VITALS: Ht 157.5 cm; Wt 98.6 kg
[2022-03-19 02:19] VITALS: BP 135/75
== END 2022-03-19 02:20 | disposition home or self-care (01) ==
LOC: M ED 23:34
DX: S80.11XA Contusion of right lower leg, initial encounter (principal); W22.8XXA Striking against or struck by other objects, initial encounter; E78.5 Hyperlipidemia, unspecified; Z87.891 Personal history of nicotine dependence; Z79.899 Other long term (current) drug therapy

== ENCOUNTER → 2022-03-22 | Outpatient (REF) | LOC: M LABSMTC 09:38 | PROVIDERS: ATTEND Family Medicine | DX: Z20.822 Contact with and (suspected) exposure to COVID-19 (principal) ==

== ENCOUNTER → 2022-03-24 | Outpatient (REF) ==
[2022-03-24 11:14] LABS: RSV AMPLIFICATION NEGATIVE (NEGATIVE)
== END ==
LOC: M EMP 09:56
PROVIDERS: ATTEND Family Medicine
DX: Z20.822 Contact with and (suspected) exposure to COVID-19 (principal)

== ENCOUNTER → 2022-03-28 | Outpatient (CLI) | payer OTHER | LOC: M RAD 07:45 | PROVIDERS: ATTEND Registered Nurse | DX: Z01.810 Encounter for preprocedural cardiovascular examination (principal); E66.01 Morbid (severe) obesity due to excess calories; R00.1 Bradycardia, unspecified; I49.9 Cardiac arrhythmia, unspecified ==

== ENCOUNTER 2022-05-05 21:10 | Emergency (ER) | payer OTHER ==
[~2022-05-05] VITALS: Ht 157.5 cm; Wt 102.4 kg
[2022-05-05 21:11] VITALS: BP 139/84
[2022-05-05] MEDS ORDERED: LIDO2SOL17 PO (21:18)
[2022-05-05] MEDS ORDERED: VENTAER INH (21:18)
[2022-05-05] MEDS ORDERED: BENZ-18 PO (21:18)
[2022-05-05] MEDS ORDERED: NAPR-885 PO (21:23)
[2022-05-05] MEDS ORDERED: IPRATROPIUM 0.5MG/ALBUTEROL 2.5MG INH SOL UD 3ML (DUONEB) NEB ONE ×2 (21:40→22:40)
[2022-05-05] MEDS ORDERED: methylPREDNISolone 125MG 2ML VIAL IV ONE (21:40)
[2022-05-05 22:05] LABS: BASO % 0.7 % (0.0-1.0); EOS # 0.3 10^3/uL (0.0-0.5); EOS % 4.3 % (0.0-3.0); HEMATOCRIT 38.9 % (36.0-47.0); HEMOGLOBIN 12.6 g/dl (12.0-15.5); LYMPH # 1.6 10^3/uL (1.5-5.0); LYMPH % 26.5 % (24.0-44.0); MEAN CORPUSCULAR HEMOGLOBIN 30.1 pg (27.0-33.0); MEAN CORPUSCULAR HGB CONC 32.4 g/dl (32.0-36.5); MEAN CORPUSCULAR VOLUME 92.8 fl (80.0-96.0); MONO # 0.4 10^3/uL (0.0-0.8); NEUTROPHILS # 3.7 10^3/uL (1.5-8.5); NEUTROPHILS % 62.3 % (36.0-66.0); PLATELET COUNT, AUTOMATED 256 10^3/uL (150-450); RED BLOOD COUNT 4.19 10^6/uL (4.00-5.40); WHITE BLOOD COUNT 5.9 10^3/uL (4.0-10.0)
[2022-05-05 22:38] LABS: BLOOD UREA NITROGEN 8 MG/DL (9-23); CALCIUM LEVEL 8.8 MG/DL (8.5-10.1); CARBON DIOXIDE LEVEL 24 MMOL/L (20-31); CHLORIDE LEVEL 104 MMOL/L (98-107); CREATININE FOR GFR 0.72 MG/DL (0.55-1.30); GLOMERULAR FILTRATION RATE > 60.0 (>60); GLUCOSE, FASTING 142 MG/DL (60-100); MAGNESIUM LEVEL 1.8 MG/DL (1.8-2.4); POTASSIUM SERUM 3.9 MMOL/L (3.5-5.1); SODIUM LEVEL 140 MMOL/L (136-145)
[2022-05-06] MEDS ORDERED: PRED20TA PO
== END 2022-05-06 00:32 | disposition home or self-care (01) ==
LOC: M ED 21:10
DX: U07.1 COVID-19 (principal); Z79.899 Other long term (current) drug therapy; Z87.891 Personal history of nicotine dependence; Z98.890 Other specified postprocedural states
CPT/HCPCS: 80048; 83735; 85025; 87486; 87581; 87633; 87798; 94640; 96374; 99284; J2930

== ENCOUNTER → 2022-08-17 | Outpatient (CLI) | payer OTHER ==
[~2022-08-17] MED LIST changes: +BENZ-18 PO; +DIPH-435 PO; -DIPH25CA32 PO; +LIDO15SO4 PO; +NAPR-885 PO; +PRED20TA PO; +VENTAER INH
== END ==
LOC: M RAD 07:06
PROVIDERS: ATTEND Registered Nurse
DX: K29.50 Unspecified chronic gastritis without bleeding (principal); E66.01 Morbid (severe) obesity due to excess calories; K76.0 Fatty (change of) liver, not elsewhere classified; K82.8 Other specified diseases of gallbladder

== ENCOUNTER → 2022-09-29 | Outpatient (REF) ==
[~2022-09-29] MED LIST changes: +LIDO15SO PO; -LIDO15SO4 PO
[2022-09-29 13:25] LABS: RSV AMPLIFICATION NEGATIVE (NEGATIVE)
== END ==
LOC: M EMP 12:23
PROVIDERS: ATTEND Family Medicine
DX: Z20.822 Contact with and (suspected) exposure to COVID-19 (principal)

== ENCOUNTER → 2022-11-30 | Outpatient (CLI) | payer OTHER | LOC: M RAD 23:11 | PROVIDERS: ATTEND Emergency Medicine | DX: M25.572 Pain in left ankle and joints of left foot (principal); M79.89 Other specified soft tissue disorders ==

== ENCOUNTER → 2023-02-16 | Outpatient (REF) ==
[~2023-02-16] MED LIST changes: +LORA-1041 PO; -LORA-674 PO
== END ==
LOC: M EMP 09:45
PROVIDERS: ATTEND Family Medicine
DX: Z11.52 Encounter for screening for COVID-19 (principal)

== ENCOUNTER 2023-11-27 21:27 | Emergency (ER) | payer OTHER ==
[~2023-11-27] VITALS: Ht 157.5 cm; Wt 100.0 kg
[~2023-11-27 21:27] MED LIST changes: -LIDO15SO PO; +LIDO15SO8 PO; +ONDA-282 PO; -ONDA4TAB6 PO
[2023-11-27] MEDS: NS 1,000 ML IV ONE (22:20)
[2023-11-27] MEDS: MECLIZINE 25 MG TABLET PO ONE (22:33)
[2023-11-27 23:05] LABS: BASO # 0.1 10^3/uL (0.0-0.2); BASO % 0.8 % (0.0-1.0); EOS # 0.2 10^3/uL (0.0-0.5); EOS % 2.1 % (0.0-3.0); HEMATOCRIT 43.3 % (36.0-47.0); HEMOGLOBIN 14.5 g/dl (12.0-15.5); LYMPH # 3.1 10^3/uL (1.5-5.0); LYMPH % 35.8 % (24.0-44.0); MEAN CORPUSCULAR HEMOGLOBIN 30.8 pg (27.0-33.0); MEAN CORPUSCULAR HGB CONC 33.5 g/dl (32.0-36.5); MEAN CORPUSCULAR VOLUME 91.9 fl (80.0-96.0); MONO # 0.4 10^3/uL (0.0-0.8); MONO % 5.1 % (2.0-8.0); NEUTROPHILS # 4.8 10^3/uL (1.5-8.5); PLATELET COUNT, AUTOMATED 292 10^3/uL (150-450); RED BLOOD COUNT 4.71 10^6/uL (4.00-5.40); WHITE BLOOD COUNT 8.6 10^3/uL (4.0-10.0)
[2023-11-27 23:12] VITALS: TEMP 98.6
[2023-11-27 23:32] LABS: ALKALINE PHOSPHATASE 92 U/L (46-116); ALT/SGPT 101 U/L (7.0-40); AST/SGOT 42 U/L (<34); BILIRUBIN,TOTAL 0.4 MG/DL (0.3-1.2); BLOOD UREA NITROGEN 10 MG/DL (9-23); CALCIUM LEVEL 9.5 MG/DL (8.5-10.1); CARBON DIOXIDE LEVEL 26 MMOL/L (20-31); CHLORIDE LEVEL 107 MMOL/L (98-107); GLOMERULAR FILTRATION RATE > 60.0 (>60); GLUCOSE, FASTING 84 MG/DL (60-100); POTASSIUM SERUM 3.9 MMOL/L (3.5-5.1); SODIUM LEVEL 140 MMOL/L (136-145); TOTAL PROTEIN 7.3 G/DL (5.7-8.2)
[2023-11-28] MEDS ORDERED: ONDA-282 PO (00:09)
[2023-11-28] MEDS ORDERED: MECL-209 PO (00:09)
[2023-11-28] MEDS: MECLIZINE 25 MG TABLET PO ONE (00:15)
[2023-11-28] MEDS: ONDANSETRON 4MG 2ML VIAL IV ONE (00:15)
[2023-11-28] MEDS: ONDANSETRON 4MG ORAL DISINTEGRATING TAB PO ONE (00:15)
[2023-11-28 00:37] VITALS: BP 124/80; O2SAT 98
== END 2023-11-28 00:41 | disposition home or self-care (01) ==
LOC: M ED 21:27
DX: R42 Dizziness and giddiness (principal); J45.909 Unspecified asthma, uncomplicated; Z79.899 Other long term (current) drug therapy
CPT/HCPCS: 70450; 80053; 83735; 85025; 93005; 96361; 96374; 99284; J2405

== ENCOUNTER → 2024-02-21 | Outpatient (REF) | payer OTHER ==
[~2024-02-21] MED LIST changes: +MECL-209 PO
== END ==
LOC: M LAB REF 10:10
PROVIDERS: ATTEND Pediatrics
DX: R19.7 Diarrhea, unspecified (principal)

== ENCOUNTER 2024-03-06 15:26 | Emergency (ER) | payer OTHER ==
[~2024-03-06] VITALS: Ht 157.5 cm; Wt 100.5 kg
[2024-03-06] MEDS ORDERED: TETR1CAP2 (15:37)
[2024-03-06] MEDS ORDERED: METR-265 (15:37)
[2024-03-06] MEDS ORDERED: DICY-61 (15:37)
[2024-03-06] MEDS ORDERED: OMEP-173 (15:37)
[2024-03-06 21:20] VITALS: BP 114/64; O2SAT 100
[2024-03-06 22:17] VITALS: TEMP 97.9
== END 2024-03-06 22:18 | disposition home or self-care (01) ==
LOC: M ED 15:26
DX: J20.4 Acute bronchitis due to parainfluenza virus (principal); E78.5 Hyperlipidemia, unspecified; Z79.2 Long term (current) use of antibiotics; Z79.899 Other long term (current) drug therapy

== ENCOUNTER 2024-06-17 08:59 | Observation (INO) | payer OTHER ==
[~2024-06-17] VITALS: Ht 157.5 cm; Wt 100.0 kg
[~2024-06-17 08:59] MED LIST changes: +DICY-61; +METR-265; +OMEP-173; +TETR1CAP2
[2024-06-17 09:44] LABS: BASO # 0.1 10^3/uL (0.0-0.2); BASO % 0.7 % (0.0-1.0); EOS # 0.2 10^3/uL (0.0-0.5); EOS % 2.1 % (0.0-3.0); HEMATOCRIT 41.8 % (36.0-47.0); LYMPH # 2.5 10^3/uL (1.5-5.0); LYMPH % 34.5 % (24.0-44.0); MEAN CORPUSCULAR HEMOGLOBIN 30.6 pg (27.0-33.0); MEAN CORPUSCULAR HGB CONC 33.5 g/dl (32.0-36.5); MEAN CORPUSCULAR VOLUME 91.3 fl (80.0-96.0); MONO # 0.3 10^3/uL (0.0-0.8); MONO % 4.6 % (2.0-8.0); NEUTROPHILS # 4.2 10^3/uL (1.5-8.5); NEUTROPHILS % 57.8 % (36.0-66.0); RED BLOOD COUNT 4.58 10^6/uL (4.00-5.40); WHITE BLOOD COUNT 7.2 10^3/uL (4.0-10.0)
[2024-06-17] MEDS: KETOROLAC 30 MG/ML 1ML VIAL IV ONE (10:00)
[2024-06-17 10:10] LABS: CK-MB VALUE MASS < 1.0 NG/ML (<3.6); LIPASE 33 U/L (12-53)
[2024-06-17 10:11] LABS: HCG, SERUM QUALITATIVE NEGATIVE (NEGATIVE)
[2024-06-17 10:12] LABS: ALBUMIN 3.7 G/DL (3.2-5.2); ALKALINE PHOSPHATASE 87 U/L (35-104); ALT/SGPT 67 U/L (7.0-40); AST/SGOT 43 U/L (<34); BILIRUBIN,DIRECT 0.1 MG/DL (<0.4); BILIRUBIN,TOTAL 0.6 MG/DL (0.3-1.2); BLOOD UREA NITROGEN 11 MG/DL (9-23); CALCIUM LEVEL 9.3 MG/DL (8.5-10.1); CARBON DIOXIDE LEVEL 24 MMOL/L (20-31); CHLORIDE LEVEL 108 MMOL/L (98-107); CREATININE FOR GFR 0.72 MG/DL (0.55-1.30); GLOMERULAR FILTRATION RATE > 60.0 (>60); GLUCOSE, FASTING 95 MG/DL (60-100); POTASSIUM SERUM 4.6 MMOL/L (3.5-5.1); SODIUM LEVEL 138 MMOL/L (136-145); TOTAL PROTEIN 7.2 G/DL (5.7-8.2)
[2024-06-17 10:14] LABS: CPK CREATINE PHOSPHOKINASE 125 U/L (34-145)
[2024-06-17] MEDS ORDERED: ISOVUE-370 76% 100ML VIAL As Ordered ONE (10:38)
[2024-06-17] MEDS ORDERED: ONDANSETRON 4MG 2ML VIAL As Ordered ONE (10:43)
[2024-06-17] MEDS: ONDANSETRON 4MG 2ML VIAL IV ONE ×2 (11:13→15:27)
[2024-06-17] MEDS: MORPHINE 4 MG/ML 1ML VIAL IV PRN (11:14)
[2024-06-17] MEDS: MAALOX 30 ML SUSP *UDC PO ONE (13:08)
[2024-06-17] MEDS: SUCRALFATE SUSP 1GM/10ML UD PO ONE (13:08)
[2024-06-17] MEDS: PANTOPRAZOLE 40MG VIAL IV ONE (13:08)
[2024-06-17] MEDS: LIDOCAINE VISCOUS 2% SOLN 15ML UDC PO ONE (13:08)
[2024-06-17] MEDS ORDERED: HOME MED LIST COMPLETE! XX SCH (16:05)
[2024-06-17] MEDS ORDERED: MOM 30ML SUSPENSION UDC PO PRN (17:20)
[2024-06-17] MEDS ORDERED: MAALOX 30 ML SUSP *UDC PO PRN (17:20)
[2024-06-17 18:46] LABS: PLATELET COUNT, AUTOMATED 298 10^3/uL (150-450)
[2024-06-17] MEDS: METOCLOPRAMIDE INJ 10MG/2ML VIAL IV ONE (19:07)
[2024-06-17] MEDS: traMADol 50 MG TAB PO PRN (19:11)
[2024-06-17] MEDS: PANTOPRAZOLE 40MG VIAL IV SCH (22:15)
[2024-06-17] MEDS: SUCRALFATE SUSP 1GM/10ML UD PO SCH (22:15)
[2024-06-17] MEDS: ONDANSETRON 4MG 2ML VIAL IV PRN (22:17)
[2024-06-18 07:33] LABS: ALBUMIN 3.3 G/DL (3.2-5.2); ALKALINE PHOSPHATASE 80 U/L (35-104); ALT/SGPT 63 U/L (7.0-40); AST/SGOT 25 U/L (<34); BILIRUBIN,TOTAL 0.6 MG/DL (0.3-1.2); BLOOD UREA NITROGEN 13 MG/DL (9-23); CALCIUM LEVEL 9.1 MG/DL (8.5-10.1); CARBON DIOXIDE LEVEL 26 MMOL/L (20-31); CHLORIDE LEVEL 108 MMOL/L (98-107); CHOLESTEROL LEVEL 301 MG/DL (<200); CHOLESTEROL RISK RATIO 6.08 (<5); GLOMERULAR FILTRATION RATE > 60.0 (>60); GLUCOSE, FASTING 99 MG/DL (60-100); HDL CHOLESTEROL 49.5 MG/DL (>40); LDL CHOLESTEROL 217.7 MG/DL (<100); NON-HDL-C 251.5 MG/DL; SODIUM LEVEL 139 MMOL/L (136-145); TOTAL PROTEIN 6.6 G/DL (5.7-8.2); TRIGLYCERIDES LEVEL 169 MG/DL (<150)
[2024-06-18] MEDS: ENOXAPARIN 40MG/0.4ML SYRINGE (J1650 PER 10MG) SC SCH (08:26)
[2024-06-18] MEDS ORDERED: BUDESONIDE EC 3MG CAP (ENTOCORT EC) PO SCH (09:00)
[2024-06-18] MEDS ORDERED: E-Z-PAQUE 96% w/w SUSP 176GM BTL As Ordered ONE (10:00)
[2024-06-18] MEDS ORDERED: E-Z-HD 98% w/w 340GM SUSP BTL As Ordered ONE (10:00)
[2024-06-18] MEDS ORDERED: E-Z-GAS II EFFERVESCENT PACKET (SODIUM BICARB./CITRIC ACID/SIMETHICONE) As Ordered ONE (10:00)
[2024-06-18] MEDS: FLUTICASONE HFA 220 MCG 12 GM INHALER (FLOVENT) XX SCH (12:16)
[2024-06-18] MEDS ORDERED: TRAM50TA2 PO (13:16)
[2024-06-18] MEDS ORDERED: FLUT12AE3 XX (13:16)
[2024-06-18] MEDS ORDERED: SUCR1SS PO (13:16)
[2024-06-18] MEDS ORDERED: PROT1TAB2 PO (13:16)
[2024-06-18] MEDS ORDERED: REGL5TAB2 PO (13:19)
[2024-06-18] MEDS: METOCLOPRAMIDE INJ 10MG/2ML VIAL IV PRN (14:22)
[2024-06-18 16:26] VITALS: BP 112/59; TEMP 97.8; O2SAT 97
== END 2024-06-18 16:32 | disposition home or self-care (01) ==
LOC: M ED 08:59 → M ED INP 09:00
PROVIDERS: ADMIT Internal Medicine; ATTEND Internal Medicine
DX: K52.9 Noninfective gastroenteritis and colitis, unspecified (principal); G43.909 Migraine, unspecified, not intractable, without status migrainosus; R16.0 Hepatomegaly, not elsewhere classified; K76.0 Fatty (change of) liver, not elsewhere classified; E78.5 Hyperlipidemia, unspecified; Z87.891 Personal history of nicotine dependence; K80.20 Calculus of gallbladder without cholecystitis without obstruction; I88.0 Nonspecific mesenteric lymphadenitis; R07.89 Other chest pain; K20.0 Eosinophilic esophagitis
CPT/HCPCS: 36415; 71045; 71275; 74176; 74240; 76705; 80048; 80053; 80061; 80076; 82550; 82553; 83690; 84484; 84703; 85025; 85027; 85049; 87486; 87581; 87633; 87798; 93005; 93041; 94760; 96372; 96374; 96375; 96376; 99285; J1650; J1885; J2405; J2470; J2765; Q9967

== ENCOUNTER 2024-06-20 22:56 | Emergency (ER) | payer OTHER ==
[~2024-06-20] VITALS: Ht 157.5 cm; Wt 45.5 kg
[~2024-06-20 22:56] MED LIST changes: +FLUT12AE3 XX; +PROT1TAB2 PO; +REGL5TAB2 PO; +SUCR1SS PO; +TRAM50TA2 PO
[2024-06-21] MEDS: NS (Normal Saline) 0.9% 1,000 ML IV ONE (00:34)
[2024-06-21] MEDS: MORPHINE 4 MG/ML 1ML VIAL IV PRN (00:34)
[2024-06-21] MEDS: ONDANSETRON 4MG 2ML VIAL IV ONE (00:34)
[2024-06-21 00:58] LABS: BASO # 0.1 10^3/uL (0.0-0.2); BASO % 0.6 % (0.0-1.0); EOS # 0.1 10^3/uL (0.0-0.5); EOS % 1.6 % (0.0-3.0); HEMATOCRIT 38.9 % (36.0-47.0); HEMOGLOBIN 13.3 g/dl (12.0-15.5); LYMPH # 2.2 10^3/uL (1.5-5.0); LYMPH % 26.6 % (24.0-44.0); MEAN CORPUSCULAR HEMOGLOBIN 30.9 pg (27.0-33.0); MEAN CORPUSCULAR HGB CONC 34.2 g/dl (32.0-36.5); MEAN CORPUSCULAR VOLUME 90.5 fl (80.0-96.0); MONO # 0.5 10^3/uL (0.0-0.8); MONO % 6.1 % (2.0-8.0); NEUTROPHILS # 5.4 10^3/uL (1.5-8.5); NEUTROPHILS % 64.7 % (36.0-66.0); PLATELET COUNT, AUTOMATED 320 10^3/uL (150-450); WHITE BLOOD COUNT 8.3 10^3/uL (4.0-10.0)
[2024-06-21 01:45] LABS: LIPASE 33 U/L (12-53)
[2024-06-21 01:47] LABS: ALBUMIN 3.4 G/DL (3.2-5.2); ALKALINE PHOSPHATASE 74 U/L (35-104); ALT/SGPT 56 U/L (7.0-40); AST/SGOT 41 U/L (<34); BILIRUBIN,DIRECT < 0.1 MG/DL (<0.4); BILIRUBIN,TOTAL 0.4 MG/DL (0.3-1.2); BLOOD UREA NITROGEN 8 MG/DL (9-23); CALCIUM LEVEL 8.9 MG/DL (8.5-10.1); CARBON DIOXIDE LEVEL 26 MMOL/L (20-31); CHLORIDE LEVEL 104 MMOL/L (98-107); GLOMERULAR FILTRATION RATE > 60.0 (>60); GLUCOSE, FASTING 88 MG/DL (60-100); POTASSIUM SERUM 4.3 MMOL/L (3.5-5.1); SODIUM LEVEL 138 MMOL/L (136-145); TOTAL PROTEIN 6.9 G/DL (5.7-8.2)
[2024-06-21 02:13] LABS: HCG, SERUM QUALITATIVE NEGATIVE (NEGATIVE)
[2024-06-21 02:30] VITALS: BP 114/66; TEMP 98; O2SAT 97
[2024-06-21 03:06] LABS: PROCALCITONIN <0.04 ng/ml
[2024-06-21] MEDS: KETOROLAC 30 MG/ML 1ML VIAL IV ONE (03:30)
== END 2024-06-21 03:38 | disposition home or self-care (01) ==
LOC: M ED 22:56
DX: K80.20 Calculus of gallbladder without cholecystitis without obstruction (principal); E78.5 Hyperlipidemia, unspecified; R16.0 Hepatomegaly, not elsewhere classified; K76.0 Fatty (change of) liver, not elsewhere classified; Z79.899 Other long term (current) drug therapy
CPT/HCPCS: 76705; 80048; 80076; 83605; 83690; 84145; 84703; 85025; 87040; 96361; 96374; 96375; 99284; J1885; J2405

== ENCOUNTER → 2024-08-08 | Outpatient (REF) | LOC: M EMP 16:04 | PROVIDERS: ATTEND Family Medicine ==

== ENCOUNTER 2025-03-14 09:58 | Emergency (ER) | payer OTHER ==
[~2025-03-14] VITALS: Ht 157.5 cm; Wt 99.5 kg
[~2025-03-14 09:58] MED LIST changes: -AMBI5TAB PO; +ERYT5OIN25 OP; +ZOLP-532 PO
[2025-03-14 11:26] LABS: BASO # 0.1 10^3/uL (0.0-0.2); BASO % 0.9 % (0.0-1.0); EOS # 0.3 10^3/uL (0.0-0.5); EOS % 3.7 % (0.0-3.0); LYMPH # 2.2 10^3/uL (1.5-5.0); LYMPH % 28.8 % (24.0-44.0); MONO # 0.4 10^3/uL (0.0-0.8); MONO % 5.7 % (2.0-8.0); NEUTROPHILS # 4.6 10^3/uL (1.5-8.5); NEUTROPHILS % 60.6 % (36.0-66.0); PLATELET COUNT, AUTOMATED 305 10^3/uL (150-450)
[2025-03-14 11:39] LABS: INR 0.85
[2025-03-14 11:42] LABS: KETONE, URINE AUTO RFX NEGATIVE (NEGATIVE); LEUKOCYTE ESTERASE UR AUTO RFX NEGATIVE (NEGATIVE); NITRITE, URINE AUTO RFX NEGATIVE (NEGATIVE); RBC, URINE AUTO RFX 1 /HPF (0-3); SQUAM EPITHELIAL CELL UR AURFX 1 /HPF (0-6); WBC, URINE AUTO RFX 0 /HPF (0-3)
[2025-03-14 12:10] LABS: ALT/SGPT 54 U/L (7.0-40); AST/SGOT 31 U/L (<34); CALCIUM LEVEL 9.4 MG/DL (8.5-10.1); CARBON DIOXIDE LEVEL 27 MMOL/L (20-31); CHLORIDE LEVEL 102 MMOL/L (98-107); CREATININE FOR GFR 0.80 MG/DL (0.55-1.30); GLOMERULAR FILTRATION RATE > 90.0 (>60); POTASSIUM SERUM 4.3 MMOL/L (3.5-5.1); SODIUM LEVEL 135 MMOL/L (136-145)
[2025-03-14 14:33] LABS: HCG, SERUM QUALITATIVE NEGATIVE (NEGATIVE)
[2025-03-14] MEDS ORDERED: ISOVUE-370 76% 100 ML VIAL As Ordered ONE (14:47)
[2025-03-14] MEDS: NS (Normal Saline) 0.9% 1,000 ML IV ONE (14:49)
[2025-03-14 15:31] LABS: CK-MB VALUE MASS 1.3 NG/ML (<3.6)
[2025-03-14 15:32] LABS: CPK CREATINE PHOSPHOKINASE 261 U/L (34-145); MB/CK RELATIVE INDEX 0.49 (< OR =4)
[2025-03-14] MEDS: PANTOPRAZOLE 40MG VIAL IV ONE (15:45)
[2025-03-14] MEDS: ONDANSETRON 4MG 2ML VIAL IV ONE (15:45)
[2025-03-14] MEDS: KETOROLAC 30 MG/ML 1 ML VIAL IV ONE (15:45)
[2025-03-14 15:46] VITALS: O2SAT 96
[2025-03-14 16:10] LABS: CPK CREATINE PHOSPHOKINASE 227 U/L (34-145)
[2025-03-14 16:11] LABS: CK-MB VALUE MASS < 1.0 NG/ML (<3.6)
[2025-03-14] MEDS ORDERED: ZITH500T PO (17:11)
[2025-03-14] MEDS ORDERED: PROM25TA12 PO (17:12)
[2025-03-14 17:31] VITALS: BP 105/56; TEMP 97.9; O2SAT 95
[2025-03-14] MEDS: AZITHROMYCIN 250 MG TABLET PO ONE (17:37)
== END 2025-03-14 17:39 | disposition home or self-care (01) ==
LOC: M ED 09:58
DX: A04.9 Bacterial intestinal infection, unspecified (principal); B96.21 Shiga toxin-producing Escherichia coli [E. coli] [STEC] O157 as the cause of diseases classified elsewhere; E78.5 Hyperlipidemia, unspecified; I88.0 Nonspecific mesenteric lymphadenitis
CPT/HCPCS: 71275; 74177; 80048; 80076; 81001; 82550; 82553; 83605; 83690; 84484; 84703; 85025; 85610; 85730; 86850; 86900; 86901; 87486; 87507; 87581; 87633; 87798; 93005; 93041; 94760; 96374; 96375; 99285; J1885; J2405; J2470; Q9967

== ENCOUNTER → 2025-04-20 | Outpatient (REF) ==
[~2025-04-20] MED LIST changes: +PROM25TA12 PO; +ZITH500T PO
== END ==
LOC: M EMP 09:40
PROVIDERS: ATTEND Family Medicine
DX: Z01.89 Encounter for other specified special examinations (principal)